=== PATIENT | female | born 1985 | race Caucasian/White ===

== ENCOUNTER 2017-06-08 14:19 | Emergency (ER) | payer OTHER ==
[2017-06-08] MEDS ORDERED: Fosphenytoin Sodium 1,500 MG in Sodium Chloride 0.9% 100 ML IVPB SCH (15:15)
--- NOTE | 2017-06-08 15:34 | CT ---
CT HEAD WITHOUT IV CONTRAST: Date: 06/08/17 HISTORY: Altered mental status. Patient presented today to the emergency department for seizure. COMPARISON: None available. FINDINGS: There is no evidence of a hemorrhage, acute infarction, mass effect, or midline shift. Ventricular sy stem is normal in size, shape, and position. There is opacification of the left sphenoid sinus. The r emainder of the visualized paranasal sinuses and mastoid air cells are clear. Calvarial structures ar e intact. IMPRESSION: 1. No acute intracranial abnormality is demonstrated. 2. Sinus disease with opacification of the left sphenoid sinus. POS: [facility]
[2017-06-08 15:39] LABS: #Eosinphils 0.1 thou/uL (0.0-0.7); #Lymphocytes 1.5 thou/uL (1.20-3.40); #Monocytes 0.3 thou/uL (0.11-0.59); #Neutrophils 1.4 thou/uL (1.40-6.50); %Basophils 1.2 % (0.0-1.0); %Eosinophils 3.3 % (0.0-10.0); %Lymphocytes 46.2 % (21.0-51.0); %Monocytes 7.7 % (0.0-10.0); %Neutrophils 41.7 % (42.0-75.0); Hemoglobin 13.2 g/dL (12.0-16.0); Mean Corpuscular HGB CONC 32.8 g/dL (32.0-36.0); Mean Corpuscular Hemoglobin 30.1 pg (27.0-31.0); Mean Corpuscular Volume 91.8 fl (81.0-99.0); Mean Platelet Volume 6.6 fL (7.4-10.4); Platelet Count 270 thou/uL (130-400); RBC Distribution Width 11.9 % (11.5-14.5); Red Blood Cell (RBC) Count 4.38 mill/uL (4.20-5.40); White Blood Cell (WBC) Count 3.3 thou/uL (4.8-10.8)
[2017-06-08 15:44] LABS: BHCG - Serum Negative (NEGATIVE); Pregs Control Background? CLEAR/WHITE (CLR/WHITE); Pregs Control Bar Appear? YES (CONTROL BAR)
[2017-06-08 16:00] LABS: ALT (SGPT) 12 U/L (8-55); AST (SGOT) 13 U/L (5-34); Albumin 3.9 g/dL (3.5-5.0); Alkaline Phosphatase 71 U/L (40-150); Anion Gap 11 mmol/L (10-20); BUN (Urea Nitrogen) 17 mg/dL (7.0-18.7); Bilirubin, Total 0.4 mg/dL (0.2-1.2); CK (CPK) 112 U/L (29-168); Calc. Creatinine Clearance 0 mL/min (70-130); Calcium 9.2 mg/dL (7.8-10.44); Carbon Dioxide 25 mmol/L (22-29); Chloride 106 mmol/L (98-107); Estimated GFR-MDRD 90; Globulin 2.4 g/dL (2.4-3.5); Glucose 79 mg/dL (70-105); Lipase 12 U/L (8-78); Potassium 3.4 mmol/L (3.5-5.1); Protein, Total 6.3 g/dL (6.0-8.3); Sodium 139 mmol/L (136-145)
== END 2017-06-08 17:11 | disposition home or self-care (01) ==
LOC: ERS 14:19
DX: G40.909 Epilepsy, unspecified, not intractable, without status epilepticus (principal); J32.9 Chronic sinusitis, unspecified; F17.210 Nicotine dependence, cigarettes, uncomplicated
CPT/HCPCS: 36415; 70450; 80053; 82550; 83690; 84146; 84703; 85025; 96361; 96365; J7050; Q2009

== ENCOUNTER 2018-06-10 10:02 | Outpatient (CLI) | payer OTHER ==
--- NOTE | 2018-06-10 11:35 | CT ---
CT OF HEAD NONCONTRAST: INDICATION: Concussion. COMPARISON: Reference is made to 06/08/2017 exam. FINDINGS: No evidence of mass effect, midline shift, acute intracranial hemorrhage, or ventriculomegaly. Paran gabrielle sinuses are clear. Calvarium is intact. IMPRESSION: No acute intracranial hemorrhage or mass effect. POS: [facility]
== END 2018-06-10 10:03 | disposition home or self-care (01) ==
LOC: BICCT 10:02
PROVIDERS: ATTEND Internal Medicine
DX: S06.0X0A Concussion without loss of consciousness, initial encounter (principal)
CPT/HCPCS: 70450

== ENCOUNTER 2018-06-27 15:09 | Emergency (ER) | payer OTHER ==
[~2018-06-27 15:09] MED LIST: ISOVUE-370 76%-LOCM 1 ML ONE
[2018-06-27 15:42] LABS: #Basophils 0.1 thou/uL (0.0-0.2); #Eosinphils 0.1 thou/uL (0.0-0.7); #Lymphocytes 1.7 thou/uL (1.20-3.40); #Monocytes 0.3 thou/uL (0.11-0.59); #Neutrophils 2.4 thou/uL (1.40-6.50); %Basophils 1.6 % (0.0-1.0); %Eosinophils 2.2 % (0.0-10.0); %Lymphocytes 37.4 % (21.0-51.0); %Monocytes 6.7 % (0.0-10.0); %Neutrophils 52.2 % (42.0-75.0); Hemoglobin 14.1 g/dL (12.0-16.0); Mean Corpuscular HGB CONC 32.4 g/dL (32.0-36.0); Mean Corpuscular Volume 92.4 fL (78.0-98.0); Mean Platelet Volume 7.1 fL (7.4-10.4); Platelet Count 298 thou/uL (130-400); RBC Distribution Width 11.9 % (11.5-14.5); Red Blood Cell (RBC) Count 4.71 mill/uL (4.20-5.40); White Blood Cell (WBC) Count 4.6 thou/uL (4.8-10.8)
[2018-06-27 15:50] LABS: BHCG - Serum Negative (NEGATIVE); Pregs Control Background? CLEAR/WHITE (CLR/WHITE); Pregs Control Bar Appear? YES (CONTROL BAR)
[2018-06-27 15:51] LABS: Bilirubin Negative (Negative); Blood, Urine Negative (Negative); Clarity CLEAR (Clear); Glucose, Urine (Dipstick) Negative (Negative); Leukocyte Negative (Negative); Nitrite Negative (Negative); Protein, Urine (Dipstick) Negative (Neg-Trace); Specific Gravity, Urine 1.023 (1.002-1.036); Urobilinogen 0.2 mg/dL (0.2-1.0)
[2018-06-27 17:53] LABS: ALT (SGPT) 12 U/L (8-55); AST (SGOT) 13 U/L (5-34); Albumin 4.4 g/dL (3.5-5.0); Alkaline Phosphatase 73 U/L (40-150); Anion Gap 14 mmol/L (10-20); BUN (Urea Nitrogen) 21 mg/dL (7.0-18.7); Bilirubin, Total 0.4 mg/dL (0.2-1.2); Calc. Creatinine Clearance 0 mL/min (70-130); Carbon Dioxide 23 mmol/L (22-29); Chloride 107 mmol/L (98-107); Estimated GFR-MDRD 80; Globulin 2.5 g/dL (2.4-3.5); Glucose 82 mg/dL (70-105); Lipase 23 U/L (8-78); Potassium 3.5 mmol/L (3.5-5.1); Protein, Total 6.9 g/dL (6.0-8.3); Sodium 140 mmol/L (136-145)
[2018-06-27] MEDS ORDERED: Acetaminophen 500 MG TAB ONE (18:54)
--- NOTE | 2018-06-27 19:44 | CT ---
ABDOMEN CT WITH CONTRAST: PELVIS CT WITH CONTRAST: HISTORY: Pain. Evaluate for appendicitis. COMPARISON: None. FINDINGS: ABDOMEN: The lung bases are clear. Normal heart size. No significant pericardial fluid. The desce nding thoracic aorta and abdominal aorta have a normal caliber. No periaortic fat stranding. The gallbladder is surgically absent. Mild dilatation of the biliary system is in keeping with reser voir effect secondary to cholecystectomy. The portal vein is patent. The liver, spleen, pancreas, and adrenal glands have appropriate enhancement. No gastrohepatic, retrocrural, or periportal lymphadenopathy. There are a few scattered nonspecific, nonenlarged mesenteric lymph nodes. No mesenteric mass, free air, or free fluid. Symmetric enhancement of the kidneys. Bilaterally, no obstructive uropathy. The gastric mucosa, duo denum, and multiple normal caliber small bowel loops are identified. The ileocecal junction is yessi l. A normal caliber appendix is identified. There is scattered fecal material in a nondistended, no ndilated colon. Occasional diverticulum. No diverticulitis. PELVIS: The urinary bladder is unremarkable. There is a hypodensity in the vaginal vault. Correlat e for active menstruation. Slightly heterogeneous uterus is nonspecific. Adnexal structures are unr emarkable. Trace amount of fluid in the pelvis. No mass, lymphadenopathy, or free air. No lytic or blastic lesion in the osseous structures. IMPRESSION: 1. Limited evaluation of the alimentary canal by lack of oral contrast. [id number], a normal ca liber appendix is identified. 2. Nonspecific, mildly enlarged lymph nodes, predominantly in the left upper quadrant mesentery. Co rrelate for mesenteric lymphadenitis. 3. Heterogeneous uterus. Correlate for menstruation. There is a small enhancing focus at the left aspect of the uterus, lower uterine segment. Pelvic MRI can be performed nonemergently. POS: [facility]
== END 2018-06-27 19:00 | disposition home or self-care (01) ==
LOC: ERS 15:09
DX: R10.31 Right lower quadrant pain (principal); N93.9 Abnormal uterine and vaginal bleeding, unspecified; F41.9 Anxiety disorder, unspecified; F17.210 Nicotine dependence, cigarettes, uncomplicated; F39 Unspecified mood [affective] disorder; Z79.899 Other long term (current) drug therapy
CPT/HCPCS: 36415; 74177; 80053; 81003; 83690; 84703; 85025; 87480; 87491; 87510; 87591; 87660; Q9966

== ENCOUNTER 2018-07-03 15:48 | Emergency (ER) | payer OTHER ==
[2018-07-03 16:33] LABS: #Basophils 0.1 thou/uL (0.0-0.2); #Eosinphils 0.1 thou/uL (0.0-0.7); #Lymphocytes 1.7 thou/uL (1.20-3.40); #Monocytes 0.3 thou/uL (0.11-0.59); #Neutrophils 1.8 thou/uL (1.40-6.50); %Basophils 1.5 % (0.0-1.0); %Eosinophils 2.8 % (0.0-10.0); %Lymphocytes 43.1 % (21.0-51.0); %Monocytes 6.5 % (0.0-10.0); %Neutrophils 46.1 % (42.0-75.0); Hemoglobin 14.5 g/dL (12.0-16.0); Mean Corpuscular HGB CONC 32.8 g/dL (32.0-36.0); Mean Corpuscular Hemoglobin 30.4 pg (27.0-31.0); Mean Corpuscular Volume 92.6 fL (78.0-98.0); Mean Platelet Volume 7.1 fL (7.4-10.4); Platelet Count 285 thou/uL (130-400); Red Blood Cell (RBC) Count 4.76 mill/uL (4.20-5.40)
[2018-07-03] MEDS ORDERED: Ketorolac Tromethamine 30 MG/ML VIAL ONE ×2 (16:50→17:35)
[2018-07-03] MEDS ORDERED: Ondansetron PF 4 MG/2 ML Vial ONE ×2 (16:50→17:35)
[2018-07-03 16:55] LABS: ALT (SGPT) 13 U/L (8-55); AST (SGOT) 13 U/L (5-34); Albumin 4.1 g/dL (3.5-5.0); Alkaline Phosphatase 71 U/L (40-150); Anion Gap 12 mmol/L (10-20); BUN (Urea Nitrogen) 17 mg/dL (7.0-18.7); Bilirubin, Total 0.3 mg/dL (0.2-1.2); Calc. Creatinine Clearance 0 mL/min (70-130); Calcium 8.9 mg/dL (7.8-10.44); Carbon Dioxide 23 mmol/L (22-29); Chloride 110 mmol/L (98-107); Estimated GFR-MDRD 85; Globulin 2.4 g/dL (2.4-3.5); Glucose 72 mg/dL (70-105); Lipase 26 U/L (8-78); Potassium 3.8 mmol/L (3.5-5.1); Protein, Total 6.5 g/dL (6.0-8.3); Sodium 141 mmol/L (136-145)
[2018-07-03 17:12] LABS: Bilirubin Negative (Negative); Blood, Urine Negative (Negative); Clarity CLEAR (Clear); Glucose, Urine (Dipstick) Negative (Negative); Leukocyte Negative (Negative); Nitrite Negative (Negative); Protein, Urine (Dipstick) Negative (Neg-Trace); Specific Gravity, Urine 1.027 (1.002-1.036); Urobilinogen 0.2 mg/dL (0.2-1.0); pH, Urine 6.5 (5.0-9.0)
[2018-07-03 17:13] LABS: Pregnancy Test - Urine (BHCG) Negative (Negative); Pregu Control Background? CLEAR/WHITE (CLR/WHITE); Pregu Control Bar Appear? YES (CONTROL BAR); Specific Gravity 1.027 (1.002-1.036)
[2018-07-03] MEDS ORDERED: Morphine 4 MG/ML VIAL ONE (17:35)
--- NOTE | 2018-07-03 17:41 | ULT ---
PELVIC ULTRASOUND: HISTORY: Right-sided pelvic pain. FINDINGS: Real-time imaging of the pelvis was obtained transabdominally, as well as with an endovaginal probe. This showed a uterus measuring 6.9 cm in length. The endometrium does not appear significantly thic kened. There was slight heterogeneity to the uterus. I cannot exclude this as a small fibroid, taras uring in the 2 cm range. The right and left adnexa show small follicles. DOPPLER EVALUATION WITH SPECTRAL ANALYSIS: Normal flow is shown to the ovaries. IMPRESSION: Essentially unremarkable pelvic ultrasound with a questionable small uterine fibroid. POS: [facility]
[2018-07-03] MEDS ORDERED: Fentanyl 100 MCG/2 ML VIAL ONE (18:10)
== END 2018-07-03 19:49 | disposition left against medical advice (07) ==
LOC: ERS 15:48
DX: R10.31 Right lower quadrant pain (principal); F41.9 Anxiety disorder, unspecified; F17.210 Nicotine dependence, cigarettes, uncomplicated; Z79.899 Other long term (current) drug therapy
CPT/HCPCS: 76856; 80053; 81003; 81025; 83605; 83690; 85025; 96361; 96374; 96375; J1885; J2270; J2405; J3010

== ENCOUNTER 2019-12-05 13:07 | Outpatient (CLI) | payer OTHER | END 2019-12-05 13:08 | disposition home or self-care (01) | LOC: ULT 13:07 | PROVIDERS: ATTEND Obstetrics & Gynecology | DX: R06.00 Dyspnea, unspecified (principal); I08.1 Rheumatic disorders of both mitral and tricuspid valves | CPT/HCPCS: 93306 ==

== ENCOUNTER 2020-03-15 10:33 | Outpatient (CLI) | payer OTHER ==
[2020-03-16 12:14] LABS: SARS-CoV-2 MS2 Positive; SARS-CoV-2 N Gene Negative; SARS-CoV-2 S Gene Negative; SARS-CoV-2 by NAA Not Detected (NotDetected); SARS-CoV-2 orf1ab Negative
== END 2020-03-15 10:34 | disposition home or self-care (01) ==
LOC: LABSCS 10:33
PROVIDERS: ATTEND Obstetrics & Gynecology
DX: Z20.828 Contact with and (suspected) exposure to other viral communicable diseases (principal)
CPT/HCPCS: 87635; U0003

== ENCOUNTER 2020-03-19 05:30 | Inpatient (IN) | payer OTHER ==
[2020-03-19] MEDS: Lactated Ringer's 1,000 ML IV SCH ×4 (07:10→13:16)
[2020-03-19] MEDS ORDERED: NS w/ Oxytocin 10 units 500 ML ONE (07:25)
[2020-03-19] MEDS ORDERED: Ondansetron PF 4 MG/2 ML Vial IVP PRN ×3 (08:04→23:20)
[2020-03-19] MEDS ORDERED: Promethazine HCl 25 MG/ML VIAL IM PRN ×2 (08:04→10:03)
[2020-03-19] MEDS ORDERED: HYDROcodone/Acetaminophen 5/325 mg Tablet PO PRN ×4 (08:04→23:20)
[2020-03-19] MEDS ORDERED: NS / Oxytocin 40 units/1000ml 1,000 ML IV PRN (08:04)
[2020-03-19] MEDS ORDERED: Ibuprofen 800 MG TAB PO PRN (08:04)
[2020-03-19] MEDS ORDERED: Lidocaine 1% (PF) 30 ML VIAL SC PRN (08:04)
[2020-03-19] MEDS ORDERED: Butorphanol Tartrate 1 MG/ML VIAL SLOW IVP PRN (08:04)
[2020-03-19] MEDS ORDERED: hydrALAZINE 20 MG/ML VIAL SLOW IVP PRN ×2 (08:04→23:20)
--- NOTE | 2020-03-19 08:10 | PDOC.LDHP ---
Labor and Delivery H&P Chief complaint: scheduled induction HPI: Here for elective scheduled IOL. Current gestational age (weeks): 39 Due date: 03/26/20 Grav: 5 Para: 3 OB History Details: x 3 Current complications: other (obesity) Abnormal US findings: No Current medications: pre-pura vitamins Previous surgical history: cholecystectomy Allergies/Adverse Reactions: Allergies Allergy/AdvReac Type Severity Reaction Status Date / Time No Known Drug Allergies Allergy Unverified 08/20/19 21:34 Social history: tobacco use (1/2ppd) - Physical Exam Vital signs reviewed and normal: yes General: resting Heart: RRR Lungs: CTAB Abdomen: gravid Extremeties: no edema FHT: category 1 - OB Labs Blood type: O RH: positive Antibody Screen: negative HIV: negative RPR: negative HEPSAg: negative 1 hour GCT: negative GBS: negative Urine drug screen: negative Rubella: immune - Assessment L&D Assessment: elective induction at term - Plan Plan: admit to L&D, cervical ripening, labor augmentation if indicated, informed consent obtained, anesthesia consult for pain management
[2020-03-19 08:19] LABS: Hemoglobin 12.1 g/dL (12.0-16.0); Mean Corpuscular HGB CONC 33.8 g/dL (32.0-36.0); Mean Corpuscular Hemoglobin 29.4 pg (27.0-31.0); Mean Platelet Volume 8.6 fL (7.4-10.4); Platelet Count 229 thou/uL (130-400); RBC Distribution Width 12.4 % (11.5-14.5); Red Blood Cell (RBC) Count 4.13 mill/uL (4.20-5.40); White Blood Cell (WBC) Count 5.8 thou/uL (4.8-10.8)
[2020-03-19] MEDS ORDERED: Fentanyl 4 mcg/Bup 0.1% Cadd 100 ML ONE (08:24)
[2020-03-19] MEDS ORDERED: Bupivacaine HCl 0.5%/Epinephrine 1:200,000/PF 30 ml Vial ONE (08:43)
[2020-03-19 09:04] LABS: Syphilis Antibody Nonreactive (Nonreactive); Syphilis Antibody Index 0.02 S/CO (<1.00 Non-Reactive)
[2020-03-19 09:05] LABS: HBSAg Index 0.11 S/CO (0-0.99); Hep B Surf Ag Non-Reactive S/CO (NonReactive)
[2020-03-19] MEDS ORDERED: Naloxone HCl 0.4 mg/ml Vial IVP PRN ×2 (10:03)
[2020-03-19] MEDS ORDERED: EPHEDRINE 25 MG/5 ML SYRINGE SLOW IVP PRN (10:03)
[2020-03-19] MEDS ORDERED: Acetaminophen 325 MG TAB PO PRN (10:03)
[2020-03-19] MEDS ORDERED: Lactated Ringer's 500 ML IV PRN (10:03)
[2020-03-19] MEDS ORDERED: diphenhydrAMINE 50 MG/ML VIAL IVP PRN (10:03)
[2020-03-19] MEDS ORDERED: Fentanyl 4 mcg/Bupivacaine 0.1% Cassette 100 ML EPIDURAL SCH (10:15)
[2020-03-19] MEDS ORDERED: Communication Order-Pharmacy FS SCH (10:15)
[2020-03-19 10:24] VITALS: BMI 43.5
--- NOTE | 2020-03-19 11:17 | PDOC.LDPN ---
Labor & Delivery Progress Note - Subjective Subjective: comfortable - Objective Vital signs reviewed and normal: yes General: resting Dilation: 2 Effacement: 75% Station: -2 FHT: category 1 AROM: clear fluid IUPC placed: yes - Assessment (1) 39 weeks gestation of Code(s): Z3A.39 - 39 WEEKS GESTATION OF Current Visit: Yes Status: Acute (2) Obesity Code(s): E66.9 - OBESITY, UNSPECIFIED Current Visit: Yes Status: Acute Plan: continue plan of care, labor augmentation
[2020-03-19] MEDS ORDERED: Methylergonovine 0.2 MG/ML VIAL ONE (18:29)
[2020-03-19] MEDS ORDERED: Misoprostol 200 MCG TAB ONE (18:29)
--- NOTE | 2020-03-19 18:34 | PDOC.OPDEL ---
OB Operative/Delivery Note Delivery Dr/Surgeon: hugo Pre-Delivery Diagnosis: elective induction Procedure/Post Delivery Dx: spontaneous vaginal delivery Weeks gestation: 39 Anesthesia: epidural - Findings A Sex: male - 1 min: 9 - 5 min: 9 - Additional Findings/Plan Placenta delivered: spontaneous Repaired Obstetrical Laceration: 1st degree Estimated blood loss: 400ml Compilations/Other Findings: atony relieved w methergine and pit Post delivery plan: routine recovery
[2020-03-19] MEDS ORDERED: Bisacodyl 10 MG SUPP PR PRN (23:20)
[2020-03-19] MEDS ORDERED: diphenhydrAMINE 25 MG CAP PO PRN (23:20)
[2020-03-19] MEDS ORDERED: Lanolin Ointment 7 GM TUBE TOP PRN (23:20)
[2020-03-19] MEDS ORDERED: Benzocaine-Menthol 82.5 ML CAN TOP PRN (23:20)
[2020-03-19] MEDS ORDERED: Preparation H Ointment 28 GM TUBE PR PRN (23:20)
[2020-03-19] MEDS ORDERED: NS / Oxytocin 40 units/1000ml 1,000 ML IV SCH (23:20)
[2020-03-19] MEDS ORDERED: Milk Of Magnesia 30 ML UDCUP PO PRN (23:20)
[2020-03-19] MEDS: Ibuprofen 800 MG TAB PO SCH (23:39)
[2020-03-20] MEDS: Ibuprofen 800 MG TAB PO SCH ×3 (06:17→20:37)
[2020-03-20] MEDS ORDERED: Prenatal Vitamin 1 TAB PO SCH (09:00)
[2020-03-20] MEDS ORDERED: Adacel (T-DAP) 0.5 ML SYRINGE IM ONE (09:00)
[2020-03-20] MEDS: Docusate Calcium (SURFAK) 240 MG CAP PO SCH ×2 (09:28→20:37)
[2020-03-20] MEDS: Ferrous Sulfate 325 MG TAB PO SCH ×2 (09:29→16:50)
--- NOTE | 2020-03-20 10:03 | PDOC.PP ---
Post Progress Note Post Day #: 1 Subjective: doing well, minimal lochia, breast feeding PO intake tolerated: yes Flatus: yes Ambulation: yes Vital Signs (12 hours) Temp Pulse Resp BP Pulse Ox 03/20/20 08:14 97.9 F 77 20 108/59 L 97 Weight Weight 270 lb - Physical Examination General: NAD Respiratory: non-labored breathing Fundus firm & at: below umb Neurological: no gross focal deficits Psychiatric: A&Ox3, normal affect Result Diagrams: 03/19/20 08:00 Additional Labs: Post Labs Hep Bs Antigen Non-Reactive S/CO (NonReactive) 03/19/20 08:00 Blood Type O POSITIVE 03/19/20 08:00 (1) 39 weeks gestation of Code(s): Z3A.39 - 39 WEEKS GESTATION OF Status: Acute (2) Obesity Code(s): E66.9 - OBESITY, UNSPECIFIED Status: Acute (3) Vaginal delivery Code(s): O80 - ENCOUNTER FOR FULL-TERM UNCOMPLICATED DELIVERY Status: Acute - Assessment/Plan PPD 1 doing well, possible DC this evening if baby DC from nursery.
[2020-03-20 20:26] VITALS: BP 110/63; TEMP 98.7
== END 2020-03-20 21:50 | disposition home or self-care (01) | DRG 807 ==
LOC: L&D 06:17 → 3SW 21:52
PROVIDERS: ADMIT Obstetrics & Gynecology; ATTEND Obstetrics & Gynecology
PROC: 10E0XZZ Delivery of Products of Conception, External Approach (ICD-10-PCS; principal; 2020-03-19)
PROC: 10907ZC Drainage of Amniotic Fluid, Therapeutic from Products of Conception, Via Natural or Artificial Opening (ICD-10-PCS; 2020-03-19)
PROC: 3E033VJ Introduction of Other Hormone into Peripheral Vein, Percutaneous Approach (ICD-10-PCS; 2020-03-19)
PROC: 0HQ9XZZ Repair Perineum Skin, External Approach (ICD-10-PCS; 2020-03-19)
DX: O99.214 Obesity complicating childbirth (principal); Z37.0 Single live birth; E66.9 Obesity, unspecified; O70.0 First degree perineal laceration during delivery; Z3A.39 39 weeks gestation of pregnancy; Z90.49 Acquired absence of other specified parts of digestive tract; Z88.1 Allergy status to other antibiotic agents; Z88.6 Allergy status to analgesic agent
CPT/HCPCS: 85027; 86780; 86850; 86900; 86901; 87340; J2210; J2405; J2590

== ENCOUNTER 2020-03-21 19:38 | Emergency (ER) | payer OTHER ==
[2020-03-21] MEDS ORDERED: Fentanyl 100 MCG/2 ML VIAL ONE (20:50)
[2020-03-21 21:05] LABS: #Eosinphils 0.1 thou/uL (0.0-0.7); #Monocytes 0.4 thou/uL (0.11-0.59); #Neutrophils 3.5 thou/uL (1.40-6.50); %Basophils 0.4 % (0.0-1.0); %Eosinophils 1.3 % (0.0-10.0); %Lymphocytes 32.6 % (21.0-51.0); %Monocytes 6.8 % (0.0-10.0); %Neutrophils 58.9 % (42.0-75.0); Hemoglobin 11.3 g/dL (12.0-16.0); Mean Corpuscular HGB CONC 33.7 g/dL (32.0-36.0); Mean Corpuscular Hemoglobin 30.1 pg (27.0-31.0); Mean Corpuscular Volume 89.1 fL (78.0-98.0); Mean Platelet Volume 7.9 fL (7.4-10.4); Platelet Count 216 thou/uL (130-400); RBC Distribution Width 12.5 % (11.5-14.5); Red Blood Cell (RBC) Count 3.76 mill/uL (4.20-5.40)
[2020-03-21 21:12] LABS: INR-International Normal Ratio 0.9; Prothrombin Time 12.2 sec (12.0-14.7)
[2020-03-21 21:26] LABS: ALT (SGPT) 17 U/L (8-55); AST (SGOT) 21 U/L (5-34); Albumin 3.2 g/dL (3.5-5.0); Alkaline Phosphatase 132 U/L (40-110); Anion Gap 13 mmol/L (10-20); BUN (Urea Nitrogen) 11 mg/dL (7.0-18.7); Bilirubin, Total 0.2 mg/dL (0.2-1.2); Calc. Creatinine Clearance 0 mL/min (70-130); Calcium 8.9 mg/dL (7.8-10.44); Carbon Dioxide 26 mmol/L (22-29); Chloride 108 mmol/L (98-107); Estimated GFR-MDRD Greater than 90; Glucose 80 mg/dL (70-105); Potassium 3.8 mmol/L (3.5-5.1); Protein, Total 6.2 g/dL (6.0-8.3); Sodium 143 mmol/L (136-145)
--- NOTE | 2020-03-21 22:10 | MRI ---
MR the lumbar spine without contrast INDICATION: Low back pain after epidural anesthesia COMPARISON: Lumbar spinal radiograph dated October 06, 2012 TECHNIQUE: Multiplanar multisequence MR images were obtained of lumbar spine without IV contrast. FINDINGS: Bone marrow: There is mild Modic endplate degenerative change at L5-S1. Distal spinal cord and conus: Normal. The conus seen to terminate at L1. Visualized retroperitoneum and paraspinal soft tissues: Normal. Vertebral levels: L5-S1: There is slight retrolisthesis of L5 on S1. There is a broad-based disc bulge with mild facet joint degenerative change. There is loss of disc space height. There is no appreciable central canal or neural foraminal narrowing.. L4-5: There is mild facet joint degenerative change and broad-based bulge. The broad-based bulge does encroach upon the inferior aspect of the neural foramina, right greater the left, without definite nerve root impingement. L3-4: There is mild facet joint degenerative change but no appreciable central canal or neural forami nal narrowing. L2-3: No appreciable central canal or neuroforaminal narrowing. L1-L2: No appreciable central canal or neuroforaminal narrowing. T12-L1: No appreciable central canal or neuroforaminal narrowing. IMPRESSION: 1. Mild lumbar spondylosis. 2. No suspicious epidural fluid collection or hematoma demonstrated. 3. No appreciable central canal or neural foraminal narrowing demonstrated.
== END 2020-03-21 23:05 | disposition home or self-care (01) ==
LOC: ERS 19:38
DX: O89.5 Other complications of spinal and epidural anesthesia during the puerperium (principal); M54.5 Low back pain; O99.345 Other mental disorders complicating the puerperium; F41.9 Anxiety disorder, unspecified; F39 Unspecified mood [affective] disorder; Z87.891 Personal history of nicotine dependence
CPT/HCPCS: 72148; 80053; 85025; 85610; 85730; 96374; J3010